=== PATIENT | male | born 1970 | race Caucasian/White ===

== ENCOUNTER 2023-04-18 18:26 | Emergency (ER) | payer SELFPAY ==
[2023-04-18 19:02] VITALS: BP 109/64; PULSE 72; RESP 17; TEMP 97.2; BMI 14.5
[2023-04-18 21:32] LABS: BASO % 0.2 % (0-2.0); EOS % 0.1 % (0-4.5); HEMATOCRIT 41.4 % (35.4-49); HEMOGLOBIN 13.8 GM/dL (11.7-16.9); LYMPH % 5.4 % (8-40); MCH 30.6 pg (25.7-33.7); MCHC 33.4 g/dl (32.0-35.9); MEAN CELL VOLUME 91.6 fl (80-96); MEAN PLT VOLUME 7.6 fl (7.5-11.1); MONO % 4.9 % (3.8-10.2); NEUT % 89.4 % (42.8-82.8); PLATELET COUNT 222 10^3/uL (134-434); RBC 4.52 M/mm3 (4.00-5.60); RDW 13.3 % (11.9-15.9); WHITE BLOOD COUNT 10.4 K/mm3 (4.0-10.0)
[2023-04-18 21:48] LABS: INR 1.02 (0.83-1.09); PROTHROMBIN TIME (PATIENT) 11.8 SEC (9.7-13.0)
[2023-04-18 21:51] LABS: ACTIVATED PTT 28.1 SECONDS (25.2-36.5)
[2023-04-18 22:07] LABS: POTASSIUM 3.7 mmol/L (3.5-5.1)
[2023-04-18 22:09] LABS: CALCIUM 8.5 mg/dL (8.5-10.1)
[2023-04-18 22:10] LABS: ALBUMIN 3.8 g/dl (3.4-5.0); BLOOD UREA NITROGEN 13.3 mg/dL (7-18)
[2023-04-18 22:13] LABS: CREATININE 0.8 mg/dL (0.55-1.3)
[2023-04-18 22:15] LABS: BILIRUBIN,TOTAL 1.1 mg/dL (0.2-1); TOT PROT 7.2 g/dl (6.4-8.2)
[2023-04-18] MEDS ORDERED: ONDANSETRON 4 MG/2 ML VIAL IVPUSH ONE (23:33)
[2023-04-18] MEDS ORDERED: FAMOTIDINE 20 MG/50 ML IVPB 20 MG/50 ML MG IVPB ONE ×2 (23:33→23:52)
[2023-04-18] MEDS ORDERED: MAG HYDROX/AL HYDROX/SIMETH 30 ML UNIT-DOSE CUP PO ONE (23:33)
[2023-04-18] MEDS ORDERED: SODIUM CHLORIDE 0.9% 500 ML INFUS.BAG IV ONE (23:33)
[2023-04-18] MEDS ORDERED: MAG HYDROX/AL HYDROX/SIMETH 30 ML UNIT-DOSE CUP ONE (23:52)
[2023-04-18] MEDS ORDERED: ONDANSETRON 4 MG/2 ML VIAL ONE (23:52)
== END 2023-04-19 00:59 | disposition home or self-care (01) ==
LOC: JER 18:26
PROC: 3E033GC Introduction of Other Therapeutic Substance into Peripheral Vein, Percutaneous Approach (ICD-10-PCS; principal; 2023-04-18)
PROC: 3E033GC Introduction of Other Therapeutic Substance into Peripheral Vein, Percutaneous Approach (ICD-10-PCS; 2023-04-18)
DX: F10.929 Alcohol use, unspecified with intoxication, unspecified (principal); Y90.7 Blood alcohol level of 200-239 mg/100 ml; W18.39XA Other fall on same level, initial encounter
CPT/HCPCS: 36415; 70450-TC; 71045-TC-FY; 72125-TC; 80053; 80307; 85025; 85610; 85730; 93005; 93010; 99285-25